=== PATIENT | male | born 1960 | race Caucasian/White ===

== ENCOUNTER → 2016-12-15 | Outpatient (CLI) | payer OTHER ==
[~2016-12-15] MED LIST: AMLO5CAP2 PO; AMT50 PO; ERGO1CAP35 PO; GABA800T PO; HYDR-5688 PO; INSU1INJ2 SC; INSUINJ12 SC; METO-217 PO; ROSU20TA PO
[2016-12-15 13:35] LABS: AMYLASE 57 U/L (25-115); BLOOD UREA NITROGEN 18 mg/dl (7-18); BUN/CREATININE RATIO 16.6 (10-20); CALCIUM 9.8 mg/dl (8.5-10.1); CARBON DIOXIDE 27 mmol/L (21-32); CHLORIDE 104 mmol/L (98-107); GLUCOSE 243 mg/dl (70-99); POTASSIUM 4.4 mmol/L (3.5-5.1); SODIUM 143 mmol/L (136-145)
== END | disposition home or self-care (01) ==
LOC: C.LABMFLN 08:49
PROVIDERS: ATTEND Family Medicine
DX: E86.0 Dehydration (principal); R11.0 Nausea; E55.9 Vitamin D deficiency, unspecified

== ENCOUNTER → 2017-02-17 | Outpatient (CLI) | payer OTHER ==
[2017-02-17 14:33] LABS: ESTIMATED AVERAGE GLUCOSE 203 mg/dl; HA1C FLAG Normal (Normal)
[2017-02-17 14:44] LABS: CHOLESTEROL/HDL RATIO 3.4
[2017-02-17 15:00] LABS: RATIO 20.6 mcg/mg (0-30.0)
== END | disposition home or self-care (01) ==
LOC: C.LABMFLN 08:34
PROVIDERS: ATTEND Family Medicine
DX: E11.9 Type 2 diabetes mellitus without complications (principal)

== ENCOUNTER → 2017-10-29 | Outpatient (CLI) | payer OTHER | END | disposition home or self-care (01) | LOC: C.LABMFLN 10:08 | PROVIDERS: ATTEND Family Medicine | DX: J20.9 Acute bronchitis, unspecified (principal) ==

== ENCOUNTER → 2017-12-30 | Outpatient (CLI) | payer OTHER ==
[2017-12-30 12:57] LABS: HEMOGLOBIN A1C 10.6 % (4.5-5.6)
== END | disposition home or self-care (01) ==
LOC: C.LABMFLN 07:03
PROVIDERS: ATTEND Family Medicine
DX: E11.9 Type 2 diabetes mellitus without complications (principal)